=== PATIENT | female | born 1990 | race American Indian/Alaskan Native ===

== ENCOUNTER 2016-03-18 18:03 | Outpatient (CLI) | payer BC, MEDICAID ==
[2016-03-18 18:21] VITALS: BP 124/71
== END 2016-03-18 19:13 | disposition home or self-care (01) ==
LOC: TRG 18:03
PROVIDERS: ATTEND Obstetrics & Gynecology Gynecology
DX: O77.9 Labor and delivery complicated by fetal stress, unspecified (principal); O47.9 False labor, unspecified; Z3A.00 Weeks of gestation of pregnancy not specified
CPT/HCPCS: 59025

== ENCOUNTER 2016-04-01 11:17 | Inpatient (IN) | payer BC, MEDICAID ==
--- NOTE | 2016-04-01 12:20 | Ultrasound Report ---
OB LIMITED INDICATION: Unable to find heart tones in office. COMPARISON: None similar at this institution. TECHNIQUE: Transabdominal grayscale ultrasound with Doppler interrogation. Gestation: [place]varez position: Cephalic Heart Rate: 0 BPM No movements identified. CONCLUSION: No heart tones obtainable, supporting clinical suspicion of demise. Please correlate.
--- NOTE | 2016-04-01 12:23 | History and Physical Report ---
History of Present Illness Date of examination: 04/01/16 Chief complaint: No heart tones History of present illness: 25-year-old at 40+4 weeks presents with above complaints and issues, it appears she is a [facility] patient. Essential history is patient with no care, she had an initial OB visit in 10/30/2015 where labs were obtained. Patient however has been no-show in the clinic since that initial visit until today. She was apparently seen in the clinic where no heart tones were obtained, she was sent to triage to confirm with ultrasound. In triage, ultrasound shows no evidence of heart tones, no movement. Evidence of decomposition, unable to get accurate measurements. is in cephalic presentation at this time Past History Past Medical History: no pertinent history Past Surgical History: no surgical history TWISTER HAND History: denies: chlamydia, gonorrhea, hepatitis B, hepatitis C, herpes, HIV , syphilis Social history: , full code. denies: smoking, alcohol abuse, prescription drug abuse, IV drug use - Obstetrical History Expected Date of Delivery: 03/28/16 Actual Gestation: 40 Week(s) 4 Day(s) : 1 Para: 0 Medications and Allergies Allergies Allergy/AdvReac Type Severity Reaction Status Date / Time No Known Allergies Allergy Verified 03/18/16 18:23 Home Medications Medication Instructions Recorded Confirmed Last Taken Type No Known Home Medications [No 03/18/16 03/18/16 Unknown History Reported Home Medications] Review of Systems Constitutional: no fever, no chills, no sweats, no weakness Cardiovascular: no chest pain, no rapid/irregular heart beat, no edema, no syncope, no dyspnea on exertion Respiratory: no shortness of breath, no dyspnea on exertion Gastrointestinal: no abdominal pain, no nausea, no vomiting Genitourinary: no vaginal bleeding, no vaginal discharge, no leakage of fluid, no pelvic pain - Physical Exam Cardiovascular: Regular rate, Normal S1, Normal S2 Lungs: Positive: Clear to auscultation, Normal air movement Abdomen: Positive: normal appearance, soft. Negative: distention, tenderness, guarding, rigidity Genitourinary (Female): Positive: normal external genitalia Uterus: Positive: enlarged Adnexa: both: normal Extremities: Positive: normal - Obstetrical Cervical Dilatation: 0.5 station: -4 Results All other labs normal. Assessment and Plan A: 25 y/o at 40+4 wks with IUFD -Appears stable P: -Admit -Cervidil induction -Serial DIC labs -UDS -Routine labs -[place] -Anticipate - Patient Problems (1) 40 weeks gestation of Current Visit: Yes Status: Acute (2) demise > 22 weeks, delivered, current hospitalization Current Visit: Yes Status: Acute (3) No care in current Current Visit: Yes Status: Acute Qualifiers: Trimester: T
[2016-04-01] MEDS ORDERED: ZOFRAN IV PRN (12:26)
[2016-04-01] MEDS ORDERED: BRETHINE SUB-Q PRN ×3 (12:26→16:41)
[2016-04-01] MEDS ORDERED: ePHEDrine SULFATE IV PRN ×2 (12:26→12:46)
[2016-04-01] MEDS ORDERED: SUBLIMAZE IV PRN (12:26)
[2016-04-01] MEDS ORDERED: BRETHINE IVP PRN ×3 (12:26→16:41)
[2016-04-01] MEDS ORDERED: MINERAL OIL PO PRN (12:26)
[2016-04-01] MEDS ORDERED: PITOCin/NS 20 UNIT/1000ML DRIP 20,000 MILLIUNITS/1,000 ML BAG IV SCH ×2 (13:00)
[2016-04-01] MEDS ORDERED: CERVIDIL VG ONE (13:30)
[2016-04-01] MEDS ORDERED: PITOCin/NS 30 UNIT/500ML 30 UNITS/500 ML BAG IV SCH (17:00)
[2016-04-01 17:28] LABS: Hemoglobin 10.2 gm/dl (10.1-14.3); Mean Corpuscular HGB Conc 31 % (30-34); Mean Corpuscular Volume 77 fl (79-97); Platelet Count 353 K/mm3 (140-440); Red Blood Count 4.29 M/mm3 (3.65-5.03); White Blood Count 10.7 K/mm3 (4.5-11.0)
[2016-04-01] MEDS: PITOCin/NS 30 UNIT/500ML 30,000 MILLIUNITS/500 ML BAG IV SCH ×2 (17:30→19:43)
[2016-04-01] MEDS: LACTATED RINGERS 1,000 ML IV SCH (17:30)
[2016-04-01 17:34] LABS: Mean Corpuscular Hemoglobin 24 pg (28-32); Red Cell Distribution Width 20.5 % (13.2-15.2)
[2016-04-01 17:39] LABS: Alanine Aminotransferase 15 units/L (7-56); Albumin 3.1 g/dL (3.9-5); Albumin/Globulin Ratio 0.8 %; Alkaline Phosphatase 198 units/L (35-129); Anion Gap 19 mmol/L; Bilirubin,Total 0.2 mg/dL (0.1-1.2); Blood Urea Nitrogen 4 mg/dL (7-17); Calcium 9.1 mg/dL (8.4-10.2); Carbon Dioxide 22 mmol/L (22-30); Glucose 140 mg/dL (65-100); INR 0.94 (0.87-1.13); Partial Thromboplastin Time 32.2 Sec. (24.2-36.6); Sodium 133 mmol/L (137-145); Total Protein 6.8 g/dL (6.3-8.2)
[2016-04-01 18:01] LABS: Urine Drugs of Abuse Note Disclamer
[2016-04-02 00:29] LABS: Basophils % (Auto) 0.2 % (0.0-1.8); Eosinophils % (Auto) 0.6 % (0.0-4.3); Mean Corpuscular HGB Conc 30 % (30-34); Mean Corpuscular Volume 78 fl (79-97); Platelet Count 384 K/mm3 (140-440); Red Blood Count 4.48 M/mm3 (3.65-5.03)
[2016-04-02 00:32] LABS: Hematocrit 34.8 % (30.3-42.9); Hemoglobin 10.5 gm/dl (10.1-14.3); Mean Corpuscular Hemoglobin 24 pg (28-32); Red Cell Distribution Width 20.9 % (13.2-15.2)
[2016-04-02 00:39] LABS: INR 0.92 (0.87-1.13)
[2016-04-02 00:40] LABS: Partial Thromboplastin Time 32.2 Sec. (24.2-36.6)
[2016-04-02] MEDS: LACTATED RINGERS 1,000 ML IV SCH (00:57)
[2016-04-02] MEDS ORDERED: NARCAN 2 MG/2 ML IV PRN (03:32)
--- NOTE | 2016-04-02 03:32 | Anesthesia Consultation ---
Anesthesia Consult and Med Hx Date of service: 04/02/16 - Airway Anesthetic Teeth Evaluation: Good ROM Head & Neck: Adequate Mental/Hyoid Distance: Adequate Mallampati Class: Class II Intubation Access Assessment: Probably Good - Pulmonary Exam CTA: Yes - Cardiac Exam Cardiac Exam: RRR - Pre-Operative Health Status ASA Pre-Surgery Classification: ASA2 Proposed Anesthetic Plan: Epidural, Spinal - Pulmonary Hx Asthma: No COPD: No Hx Pneumonia: No - Cardiovascular System Hx Hypertension: No - Central Nervous System Hx Seizures: No Hx Psychiatric Problems: No - Endocrine Hx Renal Disease: No Hx End Stage Renal Disease: No Hx Hypothyroidism: No Hx Hyperthyroidism: No - Hematic Hx Anemia: No Hx Sickle Cell Disease: No - Other Systems Hx Alcohol Use: No Hx Obesity: Yes - Additional Comments Anesthesia Medical History Comments: IUFD at 40.5 wks
[2016-04-02] MEDS ORDERED: fentaNYL-BUPIV 2 MCG/ML-0.125% 200 MCG/100 ML BAG EPIDURAL SCH (04:00)
[2016-04-02] MEDS ORDERED: NACL 0.9% 500 ML 500 ML IV ONE (07:35)
--- NOTE | 2016-04-02 07:35 | Progress Note ---
Assessment and Plan A: 25 y/o at 40+4 wks with IUFD -stable P: -Continue to increase Pit until max of 20 mu/min -Anticipate - Patient Problems (1) 40 weeks gestation of Current Visit: Yes Status: Acute (2) demise > 22 weeks, delivered, current hospitalization Current Visit: Yes Status: Acute (3) No care in current Current Visit: Yes Status: Acute Qualifiers: Trimester: T Subjective - Subjective Date of service: 04/02/16 Interval history: Patient seen. Currently fully dilated and with infant head delivered, await delivery of the body. Pitocin was initially tuned off, have restarted this at this time. Patient reports: new complaints, contractions, no movement normal Objective - Vital Signs Vital Signs: Vital Signs - 12hr 04/01/16 04/01/16 04/01/16 19:40 21:52 22:52 Temperature 98.9 F Pulse Rate 101 H 100 H 109 H Pulse Rate [ Left From Monitor] Respiratory Rate Blood Pressure 124/80 131/79 114/93 04/02/16 04/02/16 04/02/16 00:22 00:53 03:14 Temperature Pulse Rate 94 H 98 H 113 H Pulse Rate [ Left From Monitor] Respiratory Rate Blood Pressure 139/84 134/79 132/83 04/02/16 04/02/16 04/02/16 03:16 03:18 03:20 Temperature Pulse Rate 107 H 109 H 107 H Pulse Rate [ Left From Monitor] Respiratory Rate Blood Pressure 126/82 138/78 123/74 04/02/16 04/02/16 04/02/16 03:22 03:24 03:26 Temperature Pulse Rate 98 H 112 H 126 H Pulse Rate [ Left From Monitor] Respiratory Rate Blood Pressure 123/73 116/74 114/68 04/02/16 04/02/16 04/02/16 03:28 03:30 03:32 Temperature Pulse Rate 133 H 120 H 125 H Pulse Rate [ Left From Monitor] Respiratory Rate Blood Pressure 115/63 117/62 119/56 04/02/16 04/02/16 04/02/16 03:34 03:36 03:38 Temperature Pulse Rate 122 H 125 H 118 H Pulse Rate [ Left From Monitor] Respiratory Rate Blood Pressure 119/60 114/59 117/62 02/04/02/16 04/02/16 03:40 03:42 03:44 Temperature Pulse Rate 123 H 115 H 114 H Pulse Rate [ Left From Monitor] Respiratory Rate Blood Pressure 120/62 119/65 113/68 04/02/16 04/02/16 04/02/16 03:46 03:48 03:50 Temperature Pulse Rate 105 H 111 H 110 H Pulse Rate [ Left From Monitor] Respiratory Rate Blood Pressure 118/67 121/66 117/65 04/02/16 04/02/16 04/02/16 03:52 03:54 03:56 Temperature Pulse Rate 113 H 112 H 112 H Pulse Rate [ Left From Monitor] Respiratory Rate Blood Pressure 116/67 117/66 117/68 04/02/16 04/02/16 04/02/16 03:58 04:00 04:02 Temperature Pulse Rate 104 H 111 H 125 H Pulse Rate [ Left From Monitor] Respiratory Rate Blood Pressure 116/61 114/66 115/61 04/02/16 04/02/16 04/02/16 04:04 04:06 04:08 Temperature Pulse Rate 108 H 108 H 109 H Pulse Rate [ Left From Monitor] Respiratory Rate Blood Pressure 113/61 113/62 110/62 04/02/16 04/02/16 04/02/16 04:10 04:12 04:14 Temperature Pulse Rate 96 H 101 H 111 H Pulse Rate [ Left From Monitor] Respiratory Rate Blood Pressure 109/63 111/63 112/65 04/02/16 04/02/16 04/02/16 04:16 04:18 04:20 Temperature Pulse Rate 116 H 106 H 109 H Pulse Rate [ Left From Monitor] Respiratory Rate Blood Pressure 113/67 114/67 113/62 04/02/16 04/02/16 04/02/16 04:22 04:24 04:26 Temperature Pulse Rate 104 H 100 H 101 H Pulse Rate [ Left From Monitor] Respiratory Rate Blood Pressure 111/61 108/60 115/63 04/02/16 04/02/16 04/02/16 04:28 04:30 04:32 Temperature Pulse Rate 101 H 104 H 100 H Pulse Rate [ Left From Monitor] Respiratory Rate Blood Pressure 108/65 110/61 108/59 04/02/16 04/02/16 04/02/16 04:34 04:36 04:38 Temperature Pulse Rate 100 H 99 H 101 H Pulse Rate [ Left From Monitor] Respiratory Rate Blood Pressure 112/61 109/61 108/61 04/02/16 04/02/16 04/02/16 04:40 04:42 04:44 Temperature Pulse Rate 100 H 103 H 101 H Pulse Rate [ Left From Monitor] Respiratory Rate Blood Pressure 109/57 107/57 112/61 04/02/16 04/02/16 04/02/16 04:46 04:48 04:50 Temperature Pulse Rate 100 H 107 H 98 H Pulse Rate [ Left From Monitor] Respiratory Rate Blood Pressure 111/60 110/59 110/60 04/02/16 04/02/16 04/02/16 04:52 04:54 04:56 Temperature Pulse Rate 103 H 103 H 99 H Pulse Rate [ Left From Monitor] Respiratory Rate Blood Pressure 113/62 114/63 112/64 04/02/16 04/02/16 04/02/16 04:58 05:00 05:02 Temperature Pulse Rate 100 H 98 H 100 H Pulse Rate [ Left From Monitor] Respiratory Rate Blood Pressure 111/62 112/63 113/63 04/02/16 04/02/16 04/02/16 05:04 05:06 05:08 Temperature Pulse Rate 100 H 103 H 95 H Pulse Rate [ Left From Monitor] Respiratory Rate Blood Pressure 111/62 113/63 116/64 04/02/16 04/02/16 04/02/16 05:10 05:12 05:14 Temperature Pulse Rate 103 H 99 H 97 H Pulse Rate [ Left From Monitor] Respiratory Rate Blood Pressure 114/63 117/63 119/64 04/02/16 04/02/16 04/02/16 05:16 05:18 05:20 Temperature Pulse Rate 98 H 105 H 122 H Pulse Rate [ Left From Monitor] Respiratory Rate Blood Pressure 114/67 114/65 111/67 04/02/16 04/02/16 04/02/16 05:22 05:24 05:26 Temperature Pulse Rate 110 H 95 H 116 H Pulse Rate [ Left From Monitor] Respiratory Rate Blood Pressure 114/64 117/61 120/68 04/02/16 04/02/16 04/02/16 05:28 05:30 05:32 Temperature Pulse Rate 118 H 153 H 120 H Pulse Rate [ Left From Monitor] Respiratory Rate Blood Pressure 122/57 105/68 101/76 04/02/16 04/02/16 04/02/16 05:34 05:36 05:38 Temperature Pulse Rate 126 H 95 H 93 H Pulse Rate [ Left From Monitor] Respiratory Rate Blood Pressure 106/62 112/61 113/64 04/02/16 04/02/16 04/02/16 05:40 05:50 05:52 Temperature Pulse Rate 129 H 146 H 150 H Pulse Rate [ Left From Monitor] Respiratory Rate Blood Pressure 106/51 112/53 99/50 04/02/16 04/02/16 04/02/16 05:54 06:00 06:02 Temperature Pulse Rate 106 H 103 H 121 H Pulse Rate [ Left From Monitor] Respiratory Rate Blood Pressure 126/59 114/53 116/54 04/02/16 04/02/16 04/02/16 06:04 06:06 06:21 Temperature Pulse Rate 102 H 118 H 117 H Pulse Rate [ Left From Monitor] Respiratory Rate Blood Pressure 103/54 103/51 116/56 04/02/16 04/02/16 04/02/16 06:23 06:26 06:41 Temperature Pulse Rate 113 H 112 H 104 H Pulse Rate [ Left From Monitor] Respiratory Rate Blood Pressure 101/51 97/49 107/58 04/02/16 04/02/16 04/02/16 06:55 07:05 07:10 Temperature 97.8 F Pulse Rate 111 H 98 H Pulse Rate [ 91 H Left From Monitor] Respiratory 18 Rate Blood Pressure 113/63 110/63 04/02/16 07:25 Temperature Pulse Rate 92 H Pulse Rate [ Left From Monitor] Respiratory Rate Blood Pressure 112/61 - Exam FHR: other (IUFD) Cervical Dilatation: 10 - Labs Labs: Abnormal Labs 04/01/16 04/01/16 04/01/16 16:55 16:55 16:55 MCV 77 L MCH 24 L RDW 20.5 H [place] % (Auto) [place] # Seg Neutrophils % Seg Neutrophils # Fibrinogen 688 H Sodium 133 L Chloride 96.0 L BUN 4 L Creatinine 0.5 L Glucose 140 H Alkaline Phosphatase 198 H Albumin 3.1 L 04/02/16 04/02/16 00:09 00:09 MCV 78 L MCH 24 L RDW 20.9 H [place] % (Auto) 8.5 H Stokes # 0.9 H Seg Neutrophils % 71.5 H Seg Neutrophils # 7.9 H Fibrinogen 660 H Sodium Chloride BUN Creatinine Glucose Alkaline Phosphatase Albumin Laboratory Results - last 24 hr 04/01/16 04/01/16 04/01/16 16:00 16:55 16:55 WBC 10.7 RBC 4.29 Hgb 10.2 Hct 33.0 MCV 77 L MCH 24 L MCHC 31 RDW 20.5 H Plt Count 353 Lymph % (Auto) [place] % (Auto) Eos % (Auto) Baso % (Auto) Lymph # [place] # Eos # Baso # Seg Neutrophils % Seg Neutrophils # PT INR APTT Fibrinogen Sodium Potassium Chloride Carbon Dioxide Anion Gap BUN Creatinine Estimated GFR BUN/Creatinine Ratio Glucose Calcium Total Bilirubin AST ALT Alkaline Phosphatase Total Protein Albumin Albumin/Globulin Ratio Urine Opiates Screen Presumptive negative Urine Methadone Screen Presumptive negative Ur Barbiturates Screen Presumptive negative Ur Phencyclidine Scrn Presumptive negative Ur Amphetamines Screen Presumptive negative U Benzodiazepines Scrn Presumptive negative Urine Cocaine Screen Presumptive negative U Marijuana (THC) Screen Presumptive negative Drugs of Abuse Note [facility] Blood Type B POSITIVE Antibody Screen Negative 04/01/16 04/01/16 04/02/16 16:55 16:55 00:09 WBC 11.0 RBC 4.48 Hgb 10.5 Hct 34.8 MCV 78 L MCH 24 L MCHC 30 RDW 20.9 H Plt Count 384 Lymph % (Auto) 19.2 [place] % (Auto) 8.5 H Eos % (Auto) 0.6 Baso % (Auto) 0.2 Lymph # 2.1 Stokes # 0.9 H Eos # 0.1 Baso # 0.0 Seg Neutrophils % 71.5 H Seg Neutrophils # 7.9 H PT 12.5 INR 0.94 APTT 32.2 Fibrinogen 688 H Sodium 133 L Potassium 4.0 Chloride 96.0 L Carbon Dioxide 22 Anion Gap 19 BUN 4 L Creatinine 0.5 L Estimated GFR > 60 BUN/Creatinine Ratio 8.00 Glucose 140 H Calcium 9.1 Total Bilirubin 0.2 AST 17 ALT 15 Alkaline Phosphatase 198 H Total Protein 6.8 Albumin 3.1 L Albumin/Globulin Ratio 0.8 Urine Opiates Screen Urine Methadone Screen Ur Barbiturates Screen Ur Phencyclidine Scrn Ur Amphetamines Screen U Benzodiazepines Scrn Urine Cocaine Screen U Marijuana (THC) Screen Drugs of Abuse Note Blood Type Antibody Screen 04/02/16 00:09 WBC RBC Hgb Hct MCV MCH MCHC RDW Plt Count Lymph % (Auto) [place] % (Auto) Eos % (Auto) Baso % (Auto) Lymph # [place] # Eos # Baso # Seg Neutrophils % Seg Neutrophils # PT 12.3 INR 0.92 APTT 32.2 Fibrinogen 660 H Sodium Potassium Chloride Carbon Dioxide Anion Gap BUN Creatinine Estimated GFR BUN/Creatinine Ratio Glucose Calcium Total Bilirubin AST ALT Alkaline Phosphatase Total Protein Albumin Albumin/Globulin Ratio Urine Opiates Screen Urine Methadone Screen Ur Barbiturates Screen Ur Phencyclidine Scrn Ur Amphetamines Screen U Benzodiazepines Scrn Urine Cocaine Screen U Marijuana (THC) Screen Drugs of Abuse Note Blood Type Antibody Screen
[2016-04-02] MEDS ORDERED: CYTOTEC PR ONE (07:37)
--- NOTE | 2016-04-02 10:12 | Procedure Note ---
OB Delivery Note - Delivery Date of Delivery: 04/02/16 Surgeon: TIO KEE Estimated blood loss: 100cc - Vaginal Delivery presentation: vertex Delivery position: OA Intrapartum events: no care, meconium, foul smelling fluid, other( please specify) (IUFD) Delivery induction: oxytocin Delivery augmentation: pitocin Delivery monitor: external uterine Route of delivery: Delivery placenta: spontaneous Delivery cord: nuchal cord Episiotomy: none Delivery laceration: none Anesthesia: epidural Delivery comments: Normal vaginal delivery over intact perineum. Infant appears macerated, unable to assess for dysmorphic features. Nuchal cord around neck 1 noted - A at 1 minute: 0 at 5 minutes: 0 Infant Gender: Female (Del @ 09:54, weight is 7#14 lbs or 3085 g)
[2016-04-02] MEDS ORDERED: PHENERGAN PR PRN (10:16)
[2016-04-02] MEDS ORDERED: MILK OF MAGNESIA PO PRN (10:16)
[2016-04-02] MEDS ORDERED: PITOCin/NS 20 UNIT/1000ML DRIP 20 UNIT/1,000 ML BAG IV SCH (11:00)
[2016-04-02] MEDS ORDERED: LANSINOH TP PRN (11:00)
[2016-04-02] MEDS ORDERED: BENADRYL PO PRN (11:00)
[2016-04-02] MEDS ORDERED: TUCKS PAD TP PRN (11:00)
[2016-04-02] MEDS ORDERED: SODIUM CHLORIDE FLUSH SYRINGE 10 ML IV NR (11:00)
[2016-04-02] MEDS ORDERED: ANCEF/NS 1 GM/50 ML 1 GM/50 ML BAG IV SCH (11:00)
[2016-04-02] MEDS ORDERED: DULCOLAX PR PRN (11:00)
[2016-04-02] MEDS ORDERED: SENOKOT S PO SCH (11:00)
[2016-04-02] MEDS ORDERED: DERMOPLAST TP PRN (11:00)
[2016-04-02] MEDS ORDERED: PHENERGAN PO PRN (11:00)
[2016-04-02] MEDS ORDERED: TYLENOL PO PRN (11:00)
[2016-04-02] MEDS ORDERED: NORCO 5/325 PO PRN (11:00)
[2016-04-02] MEDS ORDERED: ZOFRAN IV PRN (11:00)
[2016-04-02] MEDS ORDERED: FEOSOL PO SCH (22:00)
[2016-04-02] MEDS ORDERED: COLACE PO SCH (22:00)
[2016-04-02] MEDS: MOTRIN PO SCH (23:00)
[2016-04-02 23:29] LABS: Hematocrit 31.5 % (30.3-42.9); Hemoglobin 9.6 gm/dl (10.1-14.3)
[2016-04-03] MEDS: MOTRIN PO SCH (05:30)
--- NOTE | 2016-04-03 07:03 | Progress Note ---
Assessment and Plan - Patient Problems (1) (normal spontaneous vaginal delivery) Onset Date: 04/03/16 Current Visit: Yes Status: Resolved Plan to address problem: A: S/P (IUFD) - PPD #1 Doing well P: May go home today Subjective - Subjective Date of service: 04/03/16 Principal diagnosis: s/p (IUFD) - PPD#1 Interval history: Pt feeling well without complaints. Bleeding improved. Patient reports: appetite normal, voiding normally, pain well controlled, flatus , ambulating normally : Objective - Vital Signs Latest vital signs: Vital Signs Temp Pulse Pulse Pulse Resp BP BP 04/03/16 05:30 18 04/03/16 04:00 98.2 F 100 H 18 04/03/16 00:00 99.1 F 100 H 20 04/02/16 20:00 98.5 F 100 H 20 04/02/16 16:34 99.1 F 76 20 04/02/16 11:37 121 H 04/02/16 11:35 100.1 F H 72 20 04/02/16 11:14 104 H 04/02/16 11:11 100 H 133/75 04/02/16 11:10 99.0 F 104 H 100 H 16 141/81 133/75 04/02/16 11:09 106 H 04/02/16 11:04 108 H 04/02/16 10:59 112 H 04/02/16 10:55 111 H 134/74 04/02/16 10:54 116 H 04/02/16 10:49 104 H 04/02/16 10:44 121 H 04/02/16 10:41 110 H 131/73 04/02/16 10:39 115 H 04/02/16 10:34 134 H 04/02/16 10:29 118 H 04/02/16 10:24 115 H 04/02/16 10:19 116 H 04/02/16 10:14 125 H 04/02/16 10:11 122 H 135/75 04/02/16 09:56 125 H 154/91 04/02/16 09:50 118 H 04/02/16 09:45 114 H 04/02/16 09:41 114 H 138/63 04/02/16 09:26 109 H 133/62 04/02/16 09:20 119 H 02/21/17 09:15 105 H 04/02/16 09:12 107 H 130/67 04/02/16 09:11 150 H 159/70 04/02/16 08:56 95 H 128/74 04/02/16 08:53 93 H 04/02/16 08:48 94 H 04/02/16 08:43 91 H 04/02/16 08:41 95 H 117/69 04/02/16 08:38 94 H 04/02/16 08:26 89 117/67 04/02/16 08:10 100 H 119/69 04/02/16 07:57 93 H 112/70 04/02/16 07:41 98 H 121/64 04/02/16 07:25 92 H 112/61 04/02/16 07:10 98 H 110/63 04/02/16 07:05 97.8 F 91 H 18 BP Pulse Ox 04/03/16 05:30 04/03/16 04:00 149/67 04/03/16 00:00 101/52 04/02/16 20:00 123/68 04/02/16 16:34 124/70 04/02/16 11:37 96 04/02/16 11:35 138/84 04/02/16 11:14 99 04/02/16 11:11 04/02/16 11:10 04/02/16 11:09 100 04/02/16 11:04 100 04/02/16 10:59 100 04/02/16 10:55 04/02/16 10:54 100 04/02/16 10:49 99 04/02/16 10:44 100 04/02/16 10:41 04/02/16 10:39 100 04/02/16 10:34 99 04/02/16 10:29 100 04/02/16 10:24 100 04/02/16 10:19 99 04/02/16 10:14 98 04/02/16 10:11 04/02/16 09:56 04/02/16 09:50 100 04/02/16 09:45 99 04/02/16 09:41 04/02/16 09:26 04/02/16 09:20 100 04/02/16 09:15 100 04/02/16 09:12 04/02/16 09:11 04/02/16 08:56 04/02/16 08:53 100 04/02/16 08:48 100 04/02/16 08:43 99 04/02/16 08:41 04/02/16 08:38 100 04/02/16 08:26 04/02/16 08:10 04/02/16 07:57 04/02/16 07:41 04/02/16 07:25 04/02/16 07:10 04/02/16 07:05 Intake and Output 04/02/16 04/03/16 04/03/16 22:59 06:59 14:59 Intake Total 580 240 Output Total 500 Balance 80 240 Intake: Oral 340 120 Intake, Free Water 240 120 Output: Urine 500 Void 500 Other: Total, Intake Amount 240 120 Total, Output Amount 500 # Voids Void 1 1 - Exam Breasts: Present: deferred Cardiovascular: Present: Regular rate Lungs: Present: Clear to auscultation Abdomen: Present: normal appearance, soft Uterus: Present: normal, firm, fundal height below umbilicus Extremities: Present: normal - Labs Labs: Abnormal lab results 04/01/16 04/02/16 Range/Units 16:55 23:02 Hgb 9.6 L (10.1-14.3) gm/dl Crossmatch See Detail Laboratory Tests 04/01/16 04/01/16 04/01/16 16:00 16:55 16:55 WBC 10.7 RBC 4.29 Hgb 10.2 Hct 33.0 MCV 77 L MCH 24 L MCHC 31 RDW 20.5 H Plt Count 353 Lymph % (Auto) [place] % (Auto) Eos % (Auto) Baso % (Auto) Lymph # [place] # Eos # Baso # Seg Neutrophils % Seg Neutrophils # PT INR APTT Fibrinogen Sodium Potassium Chloride Carbon Dioxide Anion Gap BUN Creatinine Estimated GFR BUN/Creatinine Ratio Glucose Calcium Total Bilirubin AST ALT Alkaline Phosphatase Total Protein Albumin Albumin/Globulin Ratio Urine Opiates Screen Presumptive negative Urine Methadone Screen Presumptive negative Ur Barbiturates Screen Presumptive negative Ur Phencyclidine Scrn Presumptive negative Ur Amphetamines Screen Presumptive negative U Benzodiazepines Scrn Presumptive negative Urine Cocaine Screen Presumptive negative U Marijuana (THC) Screen Presumptive negative Drugs of Abuse Note Disclamer Blood Type B POSITIVE Antibody Screen Negative Crossmatch See Detail 04/01/16 04/01/16 04/02/16 16:55 16:55 00:09 WBC 11.0 RBC 4.48 Hgb 10.5 Hct 34.8 MCV 78 L MCH 24 L MCHC 30 RDW 20.9 H Plt Count 384 Lymph % (Auto) 19.2 [place] % (Auto) 8.5 H Eos % (Auto) 0.6 Baso % (Auto) 0.2 Lymph # 2.1 [place] # 0.9 H Eos # 0.1 Baso # 0.0 Seg Neutrophils % 71.5 H Seg Neutrophils # 7.9 H PT 12.5 INR 0.94 APTT 32.2 Fibrinogen 688 H Sodium 133 L Potassium 4.0 Chloride 96.0 L Carbon Dioxide 22 Anion Gap 19 BUN 4 L Creatinine 0.5 L Estimated GFR > 60 BUN/Creatinine Ratio 8.00 Glucose 140 H Calcium 9.1 Total Bilirubin 0.2 AST 17 ALT 15 Alkaline Phosphatase 198 H Total Protein 6.8 Albumin 3.1 L Albumin/Globulin Ratio 0.8 Urine Opiates Screen Urine Methadone Screen Ur Barbiturates Screen Ur Phencyclidine Scrn Ur Amphetamines Screen U Benzodiazepines Scrn Urine Cocaine Screen U Marijuana (THC) Screen Drugs of Abuse Note Blood Type Antibody Screen Crossmatch 04/02/16 04/02/16 04/03/16 00:09 23:02 06:48 WBC 14.3 H RBC 4.44 Hgb 9.6 L 10.5 Hct 31.5 34.2 MCV 77 L MCH 24 L MCHC 31 RDW 20.8 H Plt Count 304 Lymph % (Auto) [place] % (Auto) Eos % (Auto) Baso % (Auto) Lymph # [place] # Eos # Baso # Seg Neutrophils % Seg Neutrophils # PT 12.3 INR 0.92 APTT 32.2 Fibrinogen 660 H Sodium Potassium Chloride Carbon Dioxide Anion Gap BUN Creatinine Estimated GFR BUN/Creatinine Ratio Glucose Calcium Total Bilirubin AST ALT Alkaline Phosphatase Total Protein Albumin Albumin/Globulin Ratio Urine Opiates Screen Urine Methadone Screen Ur Barbiturates Screen Ur Phencyclidine Scrn Ur Amphetamines Screen U Benzodiazepines Scrn Urine Cocaine Screen U Marijuana (THC) Screen Drugs of Abuse Note Blood Type Antibody Screen Crossmatch 04/03/16 06:48 WBC RBC Hgb Hct MCV MCH MCHC RDW Plt Count Lymph % (Auto) [place] % (Auto) Eos % (Auto) Baso % (Auto) Lymph # [place] # Eos # Baso # Seg Neutrophils % Seg Neutrophils # PT INR APTT Fibrinogen Sodium 134 L Potassium 3.8 Chloride 100.6 Carbon Dioxide 18 L Anion Gap 19 BUN 4 L Creatinine 0.6 L Estimated GFR > 60 BUN/Creatinine Ratio 6.66 Glucose 96 Calcium 8.6 Total Bilirubin AST ALT Alkaline Phosphatase Total Protein Albumin Albumin/Globulin Ratio Urine Opiates Screen Urine Methadone Screen Ur Barbiturates Screen Ur Phencyclidine Scrn Ur Amphetamines Screen U Benzodiazepines Scrn Urine Cocaine Screen U Marijuana (THC) Screen Drugs of Abuse Note Blood Type Antibody Screen Crossmatch
[2016-04-03 07:05] LABS: Hematocrit 34.2 % (30.3-42.9); Hemoglobin 10.5 gm/dl (10.1-14.3); Mean Corpuscular HGB Conc 31 % (30-34); Mean Corpuscular Volume 77 fl (79-97); Platelet Count 304 K/mm3 (140-440); Red Blood Count 4.44 M/mm3 (3.65-5.03); White Blood Count 14.3 K/mm3 (4.5-11.0)
[2016-04-03 07:06] LABS: Mean Corpuscular Hemoglobin 24 pg (28-32); Red Cell Distribution Width 20.8 % (13.2-15.2)
[2016-04-03 07:21] LABS: Anion Gap 19 mmol/L; BUN/Creatinine Ratio 6.66; Blood Urea Nitrogen 4 mg/dL (7-17); Calcium 8.6 mg/dL (8.4-10.2); Carbon Dioxide 18 mmol/L (22-30); Chloride 100.6 mmol/L (98-107); Glucose 96 mg/dL (65-100); Potassium 3.8 mmol/L (3.6-5.0); Sodium 134 mmol/L (137-145)
--- NOTE | 2016-04-03 08:20 | Discharge Summary ---
Providers - Providers Date of Admission: 04/01/16 11:18 Date of discharge: 04/03/16 Attending physician: TIO KEE Primary care physician: TIO KEE Hospitalization Reason for admission: induction of labor, IUFD, IUP at term Delivery: Episiotomy: none Laceration: none Other procedures: none complications: none Discharge diagnosis: IUP at term delivered, intrapartum demise [place] baby: female Hospital course: Unremarkable except for demise. Condition at discharge: Good Disposition: DISCHARGED TO HOME OR SELFCARE - Discharge Diagnoses (1) (normal spontaneous vaginal delivery) Status: Resolved Plan - Discharge Medications Prescriptions: HYDROcodone/APAP 5-325 [[place] 5/325] 1 each PO Q6HR PRN #20 tablet PRN Reason: Pain Ibuprofen [Motrin 600 MG tab] 600 mg PO Q8H PRN #30 tablet PRN Reason: Pain Multivitamin with Iron [Multivitamins with Iron] 1 each PO DAILY #30 tablet - Provider Discharge Summary Activity: routine, no sex for 6 weeks, no heavy lifting 4 weeks, no strenuous exercise Diet: routine Instructions: routine Additional instructions: [] Smoking cessation referral if applicable(refer to patient education folder for contact #) [] Refer to [facility] Booklet Call your doctor immediately for: * Fever > 100.5 * Heavy vaginal bleeding ( >1 pad per hour) * Severe persistent headache * Shortness of breath * Reddened, hot, painful area to leg or breast * Drainage or odor from incision. * Keep incision clean and dry at all times and follow doctor's instructions regarding bathing/showering - Follow up plan Follow up: TIO KEE MD [Primary Care Provider] - 6 Weeks Forms: [facility] Discharge Summary, Discharge Signature Page
[2016-04-03 10:03] VITALS: BP 125/74
[2016-04-03] MEDS ORDERED: PRENATAL VITAMIN PO SCH (11:00)
[2016-04-03] MEDS ORDERED: BOOSTRIX IM ONE (12:00)
[2016-04-03] MEDS ORDERED: M-M-R II VACCINE SUB-Q ONE (12:00)
--- NOTE | 2016-04-03 13:07 | Progress Note ---
Subjective Date of service: 04/03/16 Principal diagnosis: s/p (IUFD) - PPD#1 Interval history: 1st day after for IUFD Patient is out of the bed. Pain is well controlled. No residual neurological deficit. No anesthesia complications. Being discharged by the HEALTH DATA ADMINISTRATOR MD. Objective - Constitutional Vitals: Vital Signs - 12hr 04/03/16 04/03/16 04/03/16 04:00 05:30 09:45 Temperature 98.2 F 98.4 F Pulse Rate [ 100 H 109 H Left From Monitor] Respiratory 18 18 18 Rate Blood Pressure 149/67 125/74 [Right Arm] - Labs CBC & Chem 7: 04/03/16 06:48 04/03/16 06:48 Labs: Abnormal lab results 04/01/16 04/02/16 04/03/16 Range/Units 16:55 23:02 06:48 WBC 14.3 H (4.5-11.0) K/mm3 Hgb 9.6 L (10.1-14.3) gm/dl MCV 77 L (79-97) fl MCH 24 L (28-32) pg RDW 20.8 H (13.2-15.2) % Sodium (137-145) mmol/L Carbon Dioxide (22-30) mmol/L BUN (7-17) mg/dL Creatinine (0.7-1.2) mg/dL Crossmatch See Detail 04/03/16 Range/Units 06:48 WBC (4.5-11.0) K/mm3 Hgb (10.1-14.3) gm/dl MCV (79-97) fl MCH (28-32) pg RDW (13.2-15.2) % Sodium 134 L (137-145) mmol/L Carbon Dioxide 18 L (22-30) mmol/L BUN 4 L (7-17) mg/dL Creatinine 0.6 L (0.7-1.2) mg/dL Crossmatch
== END 2016-04-03 11:40 | disposition home or self-care (01) | DRG 775 ==
LOC: TRG 11:17 → LD 11:18 → OB 04-02 11:35 → LD 04-02 12:10 → OB 04-02 13:54
PROVIDERS: ADMIT Obstetrics & Gynecology Gynecology; ATTEND Obstetrics & Gynecology Gynecology
PROC: 10E0XZZ Delivery of Products of Conception, External Approach (ICD-10-PCS; principal; 2016-04-02)
PROC: 3E0S3CZ (ICD-10-PCS; 2016-04-02)
PROC: 00HU33Z Insertion of Infusion Device into Spinal Canal, Percutaneous Approach (ICD-10-PCS; 2016-04-02)
PROC: 3E033VJ Introduction of Other Hormone into Peripheral Vein, Percutaneous Approach (ICD-10-PCS; 2016-04-02)
DX: O36.4XX0 Maternal care for intrauterine death, not applicable or unspecified (principal); O99.214 Obesity complicating childbirth; E66.9 Obesity, unspecified; O77.0 Labor and delivery complicated by meconium in amniotic fluid; O69.81X0 Labor and delivery complicated by cord around neck, without compression, not applicable or unspecified; Z37.1 Single stillbirth; Z3A.40 40 weeks gestation of pregnancy; Z68.35 Body mass index [BMI] 35.0-35.9, adult
CPT/HCPCS: 36415; 59200; 76815; 80048; 80053; 80307; 85014; 85018; 85025; 85027; 85384; 85610; 85730; 86850; 86900; 86901; 86920; 88307; J0690; J2590; J3010; J7120